=== PATIENT | female | born 1960 | race Caucasian/White ===

== ENCOUNTER 2016-07-20 05:28 | Day surgery (SDC) | payer BC ==
[~2016-07-20] VITALS: Ht 162.6 cm; Wt 117.9 kg
[~2016-07-20 05:28] MED LIST: DAILY MULTIPLE1 EACH PO; ENALAPRIL MALEA20 MG PO; LO-DOSE ASPIRIN81 M2 PO; MEDROL DOSEPAK4 MG PO; MOTRIN800 MG PO; NAPROSYN500 MG PO; VALIUM5 MG PO
[2016-07-20 06:49] VITALS: BP 144/77
[2016-07-20 10:35] VITALS: BP 168/77
[2016-07-20 11:29] VITALS: BP 135/70
[2016-07-20 12:51] VITALS: BP 139/65
[2016-07-20 13:11] VITALS: BP 134/70
== END 2016-07-20 13:12 | disposition home or self-care (01) ==
LOC: SDC 05:28
DX: N13.2 Hydronephrosis with renal and ureteral calculous obstruction (principal); I10 Essential (primary) hypertension; Z87.891 Personal history of nicotine dependence; Z79.82 Long term (current) use of aspirin
CPT/HCPCS: 93005; C1769; C1876; J0131; J0360; J0690; J1100; J1170; J1580; J1885; J2250; J2405; J3010